=== PATIENT | female | born 1975 | race Caucasian/White ===

== ENCOUNTER 2024-12-08 08:30 | Day surgery (SDC) | payer OTHER, SELFPAY ==
[2024-12-04 13:35] VITALS: BMI 18.8
[2024-12-08] VITALS (10 sets, daily range): BP systolic 96–120; BP diastolic 56–73; PULSE 50–65; RESP 14–19; TEMP 36.2–36.6; O2SAT 97–100; BMI 18.8
[2024-12-08 08:53] LABS: HCG Qualitative,Urine Negative
[2024-12-08] MEDS: MIDAZOLAM INJ 1 MG/ML VIAL 2 ML (ASD USE ONLY) 2 MG IVP (11:27)
[2024-12-08] MEDS: RINGERS LACTATED 1000 ML 1,000 ML 125 ML IV (11:27)
[2024-12-08] MEDS: fentaNYL CIT INJ 50 mCg/ML AMP 2ML (ASD USE ONLY) IVP (11:34)
== END 2024-12-08 12:38 | disposition home or self-care (01) ==
PROVIDERS: PCP Nurse Practitioner Family; Referring Provider Internal Medicine Gastroenterology; Visit Provider Internal Medicine Gastroenterology
PROC: 0DBE8ZX Excision of Large Intestine, Via Natural or Artificial Opening Endoscopic, Diagnostic (ICD-10-PCS; CPT 45380; principal; 2024-12-08 09:45)
DX: K52.9 Noninfective gastroenteritis and colitis, unspecified (principal); K64.8 Other hemorrhoids; K57.30 Diverticulosis of large intestine without perforation or abscess without bleeding; E88.810 Metabolic syndrome
CPT/HCPCS: 45380; 81025; A4217; A4649; J1200; J2250; J3010; J7120